=== PATIENT | male | born 1970 ===

== ENCOUNTER 2020-09-10 13:57 | Emergency (ER) | payer SELFPAY ==
[~2020-09-10] VITALS: Ht 160 cm; Wt 70.0 kg
[2020-09-10] MEDS ORDERED: LORazepam 1MG TABLET ONE (14:06)
[2020-09-10] MEDS ORDERED: PLEASE ENTER ALLERGIES MC SCH (14:30)
[2020-09-10] MEDS ORDERED: LORazepam 1MG TABLET PO ONE (14:30)
--- NOTE | 2020-09-10 14:49 | NUR ---
PT brought in by [facility] for chief complaint of anxiety, etoh, & pain
--- NOTE | 2020-09-10 14:50 | NUR ---
RN TO BEDSIDE PT WAS YELLING "NURSE, NURSE". PT RESTING IN GURNEY, RESTLESS, BUT IN NO DISTRESS. PT REPORTS "I'M HEARING THINGS. I NEED MEDICINE". PT HAS RECEIVED ATIVAN. ERP AWARE. CHART UP FOR RECHECK. PLAN TO DC.
--- NOTE | 2020-09-10 15:01 | NUR ---
IV DC'D. PT DRESSED APPROPRIATELY FOR WEATHER. DC EDUCATION PROVIDED. PT AMBULATED STEADILY TO DC WITH NEIL JUDGE.
== END 2020-09-10 15:03 | disposition home or self-care (01) ==
LOC: ED 14:01
DX: F41.1 Generalized anxiety disorder (principal); F10.129 Alcohol abuse with intoxication, unspecified; R06.4 Hyperventilation; R07.89 Other chest pain; R94.31 Abnormal electrocardiogram [ECG] [EKG]; E11.9 Type 2 diabetes mellitus without complications; Y90.0 Blood alcohol level of less than 20 mg/100 ml
CPT/HCPCS: 71045; 93005; 99283

== ENCOUNTER 2020-09-11 18:06 | Emergency (ER) | payer SELFPAY ==
[~2020-09-11] VITALS: Ht 160 cm; Wt 65.0 kg
[2020-09-11 18:13] VITALS: BP 101/70
--- NOTE | 2020-09-11 18:17 | NUR ---
SANDEEP SANDERS, PT WITH ORIGINAL C/O CP/SOB/. WHEN EMS ARRIVES PT DENIES MEDICAL SYMPTOMS AND STATES HE IS SUICIDAL. "I WANT TO KILL MYSELF, I HAVE LOTS OF WAYS" PT UNABLE TO GIVEN A CLEAR PLAN, STATES HX OF SA, UNABLE TO OBTAIN DETAILS ON SA. PT PLACED IN SECURE RM, BELONGING REMOVED AND PLACED IN LOCKER. FUR NAILER MADE AWARE OF NEED FOR SITTER.
--- NOTE | 2020-09-11 18:58 | NUR ---
Report from NEIL Davis
== END 2020-09-11 19:42 | disposition home or self-care (01) ==
LOC: ED 19:36
DX: F41.1 Generalized anxiety disorder (principal); Z72.9 Problem related to lifestyle, unspecified
CPT/HCPCS: 99283

== ENCOUNTER 2020-09-12 15:55 | Emergency (ER) | payer SELFPAY ==
[~2020-09-12] VITALS: Ht 160 cm; Wt 57.0 kg
[2020-09-12 16:05] VITALS: BP 105/57
--- NOTE | 2020-09-12 16:10 | NUR ---
pt resting on graciela. report to Nicho RN [facility] [employer] [id number]
--- NOTE | 2020-09-12 16:16 | NUR ---
task RN: pt has made multipe attempts to get out of bed and walk out of his room. +ambulatory pt back to [facility]. sitter in place. per Dr. craft, pt is not safe to leave
--- NOTE | 2020-09-12 16:30 | NUR ---
PT PLACED IN 4 POINT RESTRAINTS DUE TO ATTEMPTING TO GET OUT OF BED, ANGRY, UNSTEADY GAIT AND YELLING AT STAFF. SITTER AT BS. ORDER SIGNED BY DR. SANTIAGO.
--- NOTE | 2020-09-12 17:12 | NUR ---
PT CONTINUES TO SCREAM. SITTER AT DOOR, OFFERED WATER AND COOKIES
[2020-09-12 17:18] LABS: ALBUMIN 3.6 g/dL (3.4-5.0); ANION GAP 12 mmol/L (5-15); CALCIUM 8.2 mg/dL (8.5-10.1); CHLORIDE 116 mmol/L (98-107); CREATININE 0.77 mg/dL (0.7-1.3)
[2020-09-12 17:21] LABS: SALICYLATE LEVEL < 1.7 mg/dL (2.8-20.0)
--- NOTE | 2020-09-12 18:12 | NUR ---
PT ALERT STATES HE WANTS TO GO, OFF RESTRAINTS, GAIT STEADY, CALLED SECURITY FOR DISCHARGE ASSISTANCE
== END 2020-09-12 18:15 | disposition home or self-care (01) ==
LOC: ED 16:15
DX: F10.220 Alcohol dependence with intoxication, uncomplicated (principal); E11.9 Type 2 diabetes mellitus without complications; Y90.0 Blood alcohol level of less than 20 mg/100 ml
CPT/HCPCS: 36415; 80048; 80299; 80320; 80329; 82040; 99283; G0480